=== PATIENT | female | born 1945 | race Caucasian/White ===

== ENCOUNTER 2017-12-11 07:16 | Emergency (ER) | payer MEDICARE, OTHER ==
[~2017-12-11] VITALS: Ht 165.1 cm; Wt 70.0 kg
[~2017-12-11 07:16] MED LIST: DIAZ5 PO; LEVO.075 PO; LORT5TAB PO; OXYC-360 PO; TRIA37.512 PO; ZOCO40TA PO
[2017-12-11 07:32] VITALS: BP 150/75; PULSE 88; RESP 20; TEMP 98.5; O2SAT 93
--- NOTE | 2017-12-11 07:53 | PD ---
HPI Chief Complaint: Seizure Time Seen by Provider: 07:44 Travel History International Travel<30 days: No Contact w/Intl Traveler<30days: No Traveled to known affect area: No History of Present Illness HPI Is a 72-year-old female with a history of Alzheimer's type dementia presents emergency department with her this morning by EVAC for possible new onset seizure. According to her he was awoke from a sound sleep this morning when he noticed his was shaking in all 4 extremities, the shaking lasted for about a minute after he woke up and then afterwards the patient was unarousable for about 10-15 minutes, EMS found the patient confused and altered and brought her to the hospital, on arrival to the hospital the patient is now widely awake and alert but oriented to self and place only which according to her is her usual baseline. No history of seizure activity in the past. Has been taking her medications as prescribed. Patient denies any pain currently, denies any chest pain shortness of breath headache tongue pain. History is somewhat limited by the patient's dementia PFSH Past Medical History Alzheimer's Disease: Yes Cancer: No High Cholesterol: Yes Diabetes: No Diminished Hearing: No Glaucoma: No Hepatitis: No Hiatal Hernia: No Hypertension: Yes Kidney Stones: Yes (NOVEMBER 2005, HAD STENT PLACED AND LATER REMOVED) Thyroid Disease: Yes Tetanus Vaccination: Unknown Menopausal: Yes Tubal Ligation: Yes Past Surgical History Pacemaker: No Other Surgery: Yes (LITHOTRIPSY) Social History Alcohol Use: No Tobacco Use: No Substance Use: No Allergies-Medications (Allergen,Severity, Reaction): Coded Allergies: No Known Allergies (Verified Adverse Reaction, Unknown, 12/11/17) Reported Meds & Prescriptions Reported Meds & Active Scripts Active Keflex (Cephalexin) 500 Mg Cap 500 Mg PO Q6H 7 Days Reported Aspirin 81 Mg Chew 81 Mg CHEW DAILY Fish Oil + D3 (Fish Oil-Cholecalciferol) 1,200-1,000 Mg-Unit Cap 1 Cap PO DAILY Vitamin D3 (Cholecalciferol) 5,000 Unit Cap 5,000 Units PO DAILY Vitamin B-1 (Thiamine HCl) 100 Mg Tab 100 Mg PO DAILY Montelukast (Montelukast Sodium) 10 Mg Tab 10 Mg PO HS Levothyroxine (Levothyroxine Sodium) 75 Mcg Tab 75 Mcg PO DAILY Simvastatin 20 Mg Tab 20 Mg PO DAILY Escitalopram (Escitalopram Oxalate) 10 Mg Tab 10 Mg PO DAILY Namzaric (Memantine-Donepezil) 28-10 Mg Cap 1 Cap PO HS Review of Systems Except as stated in HPI: all other systems reviewed are Neg Physical Exam Narrative GENERAL: Well-developed well-nourished, pleasantly confused but in no obvious distress SKIN: Focused skin assessment warm/dry. HEAD: Atraumatic. Normocephalic. No tongue laceration, no colvin signs no raccoons eyes EYES: Pupils equal and round. No scleral icterus. No injection or drainage. ENT: No nasal bleeding or discharge. Mucous membranes pink and moist. NECK: Trachea midline. No JVD. CARDIOVASCULAR: Regular rate and rhythm. No murmur appreciated. RESPIRATORY: No accessory muscle use. Clear to auscultation. Breath sounds equal bilaterally. GASTROINTESTINAL: Abdomen soft, non-tender, nondistended. Hepatic and splenic margins not palpable. MUSCULOSKELETAL: No obvious deformities. No clubbing. No cyanosis. No edema. NEUROLOGICAL: Awake and alert oriented to self only, cranial nerves II through XII are grossly intact and nonfocal, 5 out of 5 strength in all 4 extremities, pleasantly confused. Cerebellar testing negative, no seizure-like activity observed in the emergency department PSYCHIATRIC: Appropriate mood and affect; insight and judgment normal. Data Data Last Documented VS Vital Signs Date Time Temp Pulse Resp B/P (MAP) Pulse Ox O2 Delivery O2 Flow Rate FiO2 12/11/17 12:03 82 118/75 (89) 98 12/11/17 07:32 98.5 20 Orders Orders Electrocardiogram (12/11/17 ) Complete Blood Count With Diff (12/11/17 07:51) Ct Brain W/O Iv Contrast(Rout) (12/11/17 ) Blood Glucose (12/11/17 07:51) Ecg Monitoring (12/11/17 07:51) Iv Access Insert/Monitor (12/11/17 07:51) Oximetry (12/11/17 07:51) Comprehensive Metabolic Panel (12/11/17 07:51) Sodium Chloride 0.9% Flush (Ns Flush) (12/11/17 08:00) Ua Includes Microscopic (12/11/17 07:51) Thyroid Stimulating Hormone (12/11/17 08:14) Ed Discharge Order (12/11/17 10:57) Labs Laboratory Tests Test 12/11/17 08:00 12/11/17 08:30 White Blood Count 4.6 TH/MM3 Red Blood Count 4.78 MIL/MM3 Hemoglobin 15.4 GM/DL Hematocrit 45.3 % Mean Corpuscular Volume 94.9 FL Mean Corpuscular Hemoglobin 32.2 PG Mean Corpuscular Hemoglobin Concent 33.9 % Red Cell Distribution Width 14.4 % Platelet Count 205 TH/MM3 Mean Platelet Volume 7.0 FL Neutrophils (%) (Auto) 67.4 % Lymphocytes (%) (Auto) 22.1 % Monocytes (%) (Auto) 6.0 % Eosinophils (%) (Auto) 3.4 % Basophils (%) (Auto) 1.1 % Neutrophils # (Auto) 3.1 TH/MM3 Lymphocytes # (Auto) 1.0 TH/MM3 Monocytes # (Auto) 0.3 TH/MM3 Eosinophils # (Auto) 0.2 TH/MM3 Basophils # (Auto) 0.1 TH/MM3 CBC Comment DIFF FINAL Differential Comment Blood Urea Nitrogen 14 MG/DL Creatinine 1.11 MG/DL Random Glucose 138 MG/DL Total Protein 7.0 GM/DL Albumin 3.4 GM/DL Calcium Level 8.8 MG/DL Alkaline Phosphatase 91 U/L Aspartate Amino Transf (AST/SGOT) 21 U/L Alanine Aminotransferase (ALT/SGPT) 29 U/L Total Bilirubin 0.9 MG/DL Sodium Level 140 MEQ/L Potassium Level 3.8 MEQ/L Chloride Level 107 MEQ/L Carbon Dioxide Level 25.2 MEQ/L Anion Gap 8 MEQ/L Estimat Glomerular Filtration Rate 48 ML/MIN Thyroid Stimulating Hormone 3rd Gen 4.160 uIU/ML Urine Color YELLOW Urine Turbidity CLEAR Urine pH 5.0 Urine Specific [place] 1.010 Urine Protein TRACE mg/dL Urine Glucose (UA) NEG mg/dL Urine Ketones NEG mg/dL Urine Occult Blood NEG Urine Nitrite POS Urine Bilirubin NEG Urine Urobilinogen LESS THAN 2.0 MG/DL Urine Leukocyte Esterase MOD Urine RBC 1 /hpf Urine WBC 5 /hpf Urine Squamous Epithelial Cells <1 /hpf Urine Bacteria FEW /hpf MDM Medical Decision Making Medical Screen Exam Complete: Yes Emergency Medical Condition: Yes Differential Diagnosis New-onset seizure, electrolyte abnormality, urinary tract infection, brain mass, Narrative Course Emergency department, describes fairly classic generalized tonic-clonic seizure with postictal phase baseline mental status. Observed in the emergency department, initial workup CT of the head, basic labs is reassuring. Evidence of urinary tract infection but no evidence of Sirs sepsis. Patient's family at the bedside they were reassuring. Discussed follow-up with their neurologist macario and discuss returning to criteria. There is no indication started this time. She is stable for discharge Last [address] 12/11/17 0000 Signed Impressions: Service Date/Time: Monday, December 11, 2017 08:54 - CONCLUSION: Normal examination. Juan Montano MD Diagnosis Primary Impression: Seizure Additional Impression: UTI (urinary tract infection) Qualified Codes: N39.0 - Urinary tract infection, site not specified Referrals: Teresa Cuadra MD Med/Other Pt SpecificInfo: Prescription(s) given Scripts Cephalexin (Keflex) 500 Mg Cap 500 MG PO Q6H for Infection for 7 Days, #28 CAP 0 Refills Prov: Nima Farmer MD 12/11/17 Disposition: 01 DISCHARGE HOME Condition: Stable Nima Farmer MD Dec 11, 2017 07:53
[2017-12-11] MEDS ORDERED: FISHCAP4 PO (07:54)
[2017-12-11] MEDS ORDERED: ESCI10TA PO (07:54)
[2017-12-11] MEDS ORDERED: MONT10TA4 PO (07:54)
[2017-12-11] MEDS ORDERED: ASPI-516 CHEW (07:54)
[2017-12-11] MEDS ORDERED: VITA100T54 PO (07:54)
[2017-12-11] MEDS ORDERED: SIMV20TA PO (07:54)
[2017-12-11] MEDS ORDERED: LEVO75TA3 PO (07:54)
[2017-12-11] MEDS ORDERED: CHOL5000 PO (07:54)
[2017-12-11] MEDS ORDERED: MEMA1CAP2 PO (07:54)
[2017-12-11] MEDS ORDERED: SODIUM CHLORIDE 0.9% FLUSH 10 ML FLUSH IVF PRN (08:00)
[2017-12-11 08:11] LABS: AUTOMATED NEUTROPHIL # 3.1 TH/MM3 (1.8-7.7); BASOPHIL # 0.1 TH/MM3 (0-0.2); BASOPHIL % 1.1 % (0.0-2.0); EOSINOPHIL # 0.2 TH/MM3 (0-0.4); EOSINOPHIL % 3.4 % (0.0-4.0); HEMATOCRIT 45.3 % (35.0-46.0); HEMOGLOBIN 15.4 GM/DL (11.6-15.3); LYMPH % 22.1 % (9.0-44.0); MEAN CELL VOLUME 94.9 FL (80.0-100.0); MEAN CORPUSCULAR HEMOGLOBIN 32.2 PG (27.0-34.0); MEAN CORPUSCULAR HGB CONC 33.9 % (32.0-36.0); MONOCYTE # 0.3 TH/MM3 (0-0.9); NEUT % 67.4 % (16.0-70.0); PLATELET COUNT 205 TH/MM3 (150-450); RED BLOOD COUNT 4.78 MIL/MM3 (4.00-5.30); RED CELL DISTRIBUTION WIDTH 14.4 % (11.6-17.2); WHITE BLOOD COUNT 4.6 TH/MM3 (4.0-11.0)
[2017-12-11 08:27] LABS: ALBUMIN 3.4 GM/DL (3.4-5.0); AST (GOT) 21 U/L (15-37); BICARBONATE 25.2 MEQ/L (21.0-32.0); BLOOD UREA NITROGEN 14 MG/DL (7-18); CALCIUM 8.8 MG/DL (8.5-10.1); CHLORIDE 107 MEQ/L (98-107); CREATININE 1.11 MG/DL (0.50-1.00); GLOMERULAR FILTRATION RATE 48 ML/MIN (>89); GLUCOSE,RANDOM 138 MG/DL (74-106); SODIUM (NA) 140 MEQ/L (136-145)
[2017-12-11 08:28] LABS: ALT (GPT) 29 U/L (10-53)
[2017-12-11 08:33] LABS: ALKALINE PHOSPHATASE 91 U/L (45-117); TOTAL BILIRUBIN ADULT 0.9 MG/DL (0.2-1.0)
[2017-12-11 08:56] LABS: BACTERIA, URINE FEW /hpf; BILIRUBIN, URINE NEG (NEG); BLOOD, URINE NEG (NEG); GLUCOSE,URINE NEG (NEG); KETONE, URINE NEG (NEG); NITRITE,URINE POS (NEG); SQUAMOUS EPITHELIAL CELL URINE <1 /hpf (0-5); URINE COLOR YELLOW (YELLW/STRAW); URINE LEUKOCYTE ESTERASE MOD (NEG)
--- NOTE | 2017-12-11 09:11 | RADRPT ---
EXAM DATE/TIME: 12/11/2017 08:54 [facility] COMPARISON: No previous studies available for comparison. INDICATIONS : Trauma. Possible seizure. RADIATION DOSE: 38.14 CTDIvol (mGy) MEDICAL HISTORY : Dementia. Hypertension. SURGICAL HISTORY : Tubal ligation. ENCOUNTER: Initial ACUITY: 1 day PAIN SCALE: 0/10 LOCATION: cranial TECHNIQUE: Multiple contiguous axial images were obtained of the head. Using automated exposure control and adj ustment of the mA and/or kV according to patient size, radiation dose was kept as low as reasonably a chievable to obtain optimal diagnostic quality images. DICOM format image data is available electro nically for review and comparison. FINDINGS: CEREBRUM: The ventricles are normal for age. No evidence of midline shift, mass lesion, hemorrhage or acute in farction. No extra-axial fluid collections are seen. POSTERIOR FOSSA: The cerebellum and brainstem are intact. The 4th ventricle is midline. The cerebellopontine angle i s unremarkable. EXTRACRANIAL: The visualized portion of the orbits is intact. SKULL: The calvaria is intact. No evidence of skull fracture. CONCLUSION: Normal examination. Juan Montano MD on December 11, 2017 at 9:03 Board Certified Radiologist. This report was verified electronically.
[2017-12-11] MEDS ORDERED: CEPH-460 PO (10:56)
[2017-12-11 12:03] VITALS: BP 118/75
--- NOTE | 2017-12-11 18:49 | EKG ---
Date Performed: 12/11/2017 Time Performed: 07:44:50 PTAGE: 72 years EKG: Sinus rhythm NONSPECIFIC T-WAVE ABNORMALITY BORDERLINE ECG Since the prior tracing, there has been no significant change PREVIOUS TRACING : 02/22/2009 12.58 DOCTOR: Lori Kimbrough Interpretating Date/Time 12/11/2017 18:45:20
== END 2017-12-11 12:11 | disposition home or self-care (01) ==
LOC: NEPC 07:16
DX: R56.9 Unspecified convulsions (principal); N39.0 Urinary tract infection, site not specified; G30.9 Alzheimer's disease, unspecified; F02.80 Dementia in other diseases classified elsewhere, unspecified severity, without behavioral disturbance, psychotic disturbance, mood disturbance, and anxiety; E78.00 Pure hypercholesterolemia, unspecified; I10 Essential (primary) hypertension
CPT/HCPCS: 70450; 80053; 81001; 84443; 85025; 93005; 99285

== ENCOUNTER 2018-03-21 04:30 | Observation (INO) | payer OTHER ==
[~2018-03-21] VITALS: Ht 167.6 cm; Wt 80.0 kg
[2018-03-21] VITALS (11 sets, daily range): BP systolic 122–182; BP diastolic 65–91; PULSE 60–107; RESP 16–20; TEMP 97–98.5; O2SAT 95–98
[~2018-03-21 04:30] MED LIST changes: +ASPI-516 CHEW; +CEPH-460 PO; +CHOL5000 PO; -DIAZ5 PO; +ESCI10TA PO; +FISHCAP4 PO; -LEVO.075 PO; +LEVO75TA3 PO; -LORT5TAB PO; +MEMA1CAP2 PO; +MONT10TA4 PO; -OXYC-360 PO; +SIMV20TA PO; -TRIA37.512 PO; +VITA100T54 PO; -ZOCO40TA PO
[2018-03-21] MEDS ORDERED: SODIUM CHLORIDE 0.9% FLUSH 10 ML FLUSH IVF PRN (06:15)
--- NOTE | 2018-03-21 06:15 | PD ---
HPI Chief Complaint: Neuro Symptoms/ Deficits Time Seen by Provider: 06:10 Travel History International Travel<30 days: No Contact w/Intl Traveler<30days: No Traveled to known affect area: No History of Present Illness HPI 73-year-old female presents to the emergency department by private transportation the care of her significant other for evaluation of confusion and speech disturbance. Patient has history of dementia and hypothyroidism. states that she went to bed around 1130 last evening he was checking on her at approximately 2:50 this morning when he noticed as he tried to awaken her that she had some garbled speech and was confused. This is unusual for the patient. He has been oftentimes falls asleep in his chair and then goes to bed and he always checks on her and typically she does not have any difficulty with her speech. Patient does have some mild dementia. Patient was symptomatic for approximately 20-30 minutes and symptoms essentially resolved. Patient's speech is back to her normal. Patient did not experience any headache reported visual disturbance difficulty with swallowing weakness on one side of her body or the other side of her body. Patient was able to speak fluently and coherently approximately 20-30 minutes after awakening from sleep with aforementioned symptoms. Has been also notes that it she was still however having some mild memory disturbance as far as remote incidents upon arrival to the emergency department but that has also resolved. Patient does not drink alcohol does not smoke cigarettes and has no history of known CVA TIA cardiac disease hypertension dyslipidemia diabetes tobaccoism or family history of similar symptoms. PFSH Past Medical History Narrative Medical Dementia dyslipidemia hypothyroidism D&C no tobacco use nursing notes reviewed Alzheimer's Disease: Yes Cancer: No High Cholesterol: Yes Diabetes: No Diminished Hearing: No Glaucoma: No Hepatitis: No Hiatal Hernia: No Hypertension: Yes Kidney Stones: Yes (NOVEMBER 2005, HAD STENT PLACED AND LATER REMOVED) Neurologic: Yes (syncope) Thyroid Disease: Yes Menopausal: Yes Tubal Ligation: Yes Past Surgical History Pacemaker: No Other Surgery: Yes (LITHOTRIPSY) Social History Alcohol Use: No Tobacco Use: No Substance Use: No Allergies-Medications (Allergen,Severity, Reaction): Coded Allergies: No Known Allergies (Verified Adverse Reaction, Unknown, 03/21/18) Reported Meds & Prescriptions Reported Meds & Active Scripts Active Keflex (Cephalexin) 500 Mg Cap 500 Mg PO Q6H 7 Days Reported Aspirin 81 Mg Chew 81 Mg CHEW DAILY Fish Oil + D3 (Fish Oil-Cholecalciferol) 1,200-1,000 Mg-Unit Cap 1 Cap PO DAILY Vitamin D3 (Cholecalciferol) 5,000 Unit Cap 5,000 Units PO DAILY Vitamin B-1 (Thiamine HCl) 100 Mg Tab 100 Mg PO DAILY Montelukast (Montelukast Sodium) 10 Mg Tab 10 Mg PO HS Levothyroxine (Levothyroxine Sodium) 75 Mcg Tab 75 Mcg PO DAILY Simvastatin 20 Mg Tab 20 Mg PO DAILY Escitalopram (Escitalopram Oxalate) 10 Mg Tab 10 Mg PO DAILY Namzaric (Memantine-Donepezil) 28-10 Mg Cap 1 Cap PO HS Review of Systems Except as stated in HPI: all other systems reviewed are Neg Physical Exam Narrative GENERAL: Well-developed well-nourished female no acute distress no respiratory distress GCS 14 to 15 baseline per SKIN: Warm and dry. HEAD: Atraumatic. Normocephalic. EYES: Pupils equal and round. No scleral icterus. No injection or drainage. ENT: No nasal bleeding or discharge. Mucous membranes pink and moist. NECK: Trachea midline. No JVD. CARDIOVASCULAR: Regular rate and rhythm. RESPIRATORY: No accessory muscle use. Clear to auscultation. Breath sounds equal bilaterally. GASTROINTESTINAL: Abdomen soft, non-tender, nondistended. Hepatic and splenic margins not palpable. MUSCULOSKELETAL: Extremities without clubbing, cyanosis, or edema. No obvious deformities. NEUROLOGICAL: Awake and alert. No obvious cranial nerve deficits. Motor grossly within normal limits. Five out of 5 muscle strength in the arms and legs. Normal speech. No pronator drift. Sensory exam grossly intact. No limb ataxia. DTRs 2+ and equal without clonus. PSYCHIATRIC: Appropriate mood and affect; insight and judgment normal. Data Data Last Documented VS Vital Signs Date Time Temp Pulse Resp B/P (MAP) Pulse Ox O2 Delivery O2 Flow Rate FiO2 03/21/18 04:55 98.5 74 18 182/91 (121) 96 Orders Orders Electrocardiogram (03/21/18 06:10) Prothrombin Time / Inr (Pt) (03/21/18 06:10) Act Partial Throm Time (Ptt) (03/21/18 06:10) Complete Blood Count With Diff (03/21/18 06:10) Comprehensive Metabolic Panel (03/21/18 06:10) Creatine Kinase (Cpk) (03/21/18 06:10) Troponin I (03/21/18 06:10) Urinalysis - C+S If Indicated (03/21/18 06:10) Ct Brain W/O Iv Contrast(Rout) (03/21/18 06:10) Chest, Single Ap (03/21/18 06:10) Ecg Monitoring (03/21/18 06:10) Iv Access Insert/Monitor (03/21/18 06:10) Oximetry (03/21/18 06:10) Sodium Chloride 0.9% Flush (Ns Flush) (03/21/18 06:15) Blood Glucose (03/21/18 06:15) Urine Culture (03/21/18 06:20) Labs Laboratory Tests Test 03/21/18 06:20 White Blood Count 4.9 TH/MM3 Red Blood Count 4.93 MIL/MM3 Hemoglobin 16.1 GM/DL Hematocrit 46.6 % Mean Corpuscular Volume 94.5 FL Mean Corpuscular Hemoglobin 32.7 PG Mean Corpuscular Hemoglobin Concent 34.6 % Red Cell Distribution Width 14.5 % Platelet Count 220 TH/MM3 Mean Platelet Volume 7.4 FL Neutrophils (%) (Auto) 71.4 % Lymphocytes (%) (Auto) 19.2 % Monocytes (%) (Auto) 6.3 % Eosinophils (%) (Auto) 2.2 % Basophils (%) (Auto) 0.9 % Neutrophils # (Auto) 3.5 TH/MM3 Lymphocytes # (Auto) 0.9 TH/MM3 Monocytes # (Auto) 0.3 TH/MM3 Eosinophils # (Auto) 0.1 TH/MM3 Basophils # (Auto) 0.0 TH/MM3 CBC Comment DIFF FINAL Differential Comment Prothrombin Time 10.7 SEC Prothromb Time International Ratio 1.1 RATIO Activated Partial Thromboplast Time 25.4 SEC Urine Color YELLOW Urine Turbidity HAZY Urine pH 5.0 Urine Specific [place] 1.018 Urine Protein NEG mg/dL Urine Glucose (UA) NEG mg/dL Urine Ketones NEG mg/dL Urine Occult Blood NEG Urine Nitrite POS Urine Bilirubin NEG Urine Urobilinogen LESS THAN 2.0 MG/DL Urine Leukocyte Esterase LARGE Urine RBC 1 /hpf Urine WBC 19 /hpf Urine Squamous Epithelial Cells 4 /hpf Urine Bacteria MANY /hpf Urine Mucus FEW /lpf Microscopic Urinalysis Comment CATH-CULTURE IND Blood Urea Nitrogen 17 MG/DL Creatinine 0.95 MG/DL Random Glucose 110 MG/DL Albumin 3.6 GM/DL Calcium Level 8.9 MG/DL Aspartate Amino Transf (AST/SGOT) 22 U/L Sodium Level 140 MEQ/L Potassium Level 4.1 MEQ/L Chloride Level 104 MEQ/L Carbon Dioxide Level 24.7 MEQ/L Anion Gap 11 MEQ/L Estimat Glomerular Filtration Rate 57 ML/MIN [facility] Medical Decision Making Medical Screen Exam Complete: Yes Emergency Medical Condition: Yes Medical Record Reviewed: Yes Interpretation(s) EKG: Normal sinus rhythm rate [address] elevation injury pattern or ectopy noted UA positive WBCs positive bacteria culture indicated Last Impressions Head CT 03/21/18609 Signed Impressions: CONCLUSION: Unremarkable study. Chest X-Ray 03/21/18609 Signed Impressions: CONCLUSION: No acute cardiopulmonary disease. CBC & BMP Diagram 03/21/18 06:20 Albumin 3.6, Calcium Level 8.9, Aspartate Amino Transf (AST/SGOT) 22 Differential Diagnosis Speech disturbance, TIA, CVA, arrhythmia, sleep disorder, adverse medication reaction Narrative Course Patient placed on night monitor with continuous pulse oximetry IV access obtained EKG ordered CT brain noncontrast ordered labs collected and sent for resulting CBC is automated differential grossly within normal limits chemistries grossly within normal range EKG no acute injury pattern change CT brain noncontrast reveals no acute abnormality chest x-ray no lobar infiltrate or acute process; urinalysis is abnormal with leukocyte esterase white blood cells and many bacteria culture indicated; blood cultures obtained and patient given first dose of Rocephin IV in the emergency department Physician Communication Physician Communication call placed to [facility] service Diagnosis Primary Impression: TIA (transient ischemic attack) Qualified Codes: G45.9 - Transient cerebral ischemic attack, unspecified Additional Impression: UTI (urinary tract infection) Qualified Codes: N39.0 - Urinary tract infection, site not specified Admitting Information Admitting Physician Requests: Sabina Nelson MD March 21, 2018 06:15
[2018-03-21 06:54] LABS: AUTOMATED NEUTROPHIL # 3.5 TH/MM3 (1.8-7.7); BASOPHIL % 0.9 % (0.0-2.0); EOSINOPHIL # 0.1 TH/MM3 (0-0.4); EOSINOPHIL % 2.2 % (0.0-4.0); HEMATOCRIT 46.6 % (35.0-46.0); HEMOGLOBIN 16.1 GM/DL (11.6-15.3); LYMPH % 19.2 % (9.0-44.0); LYMPHOCYTE # 0.9 TH/MM3 (1.0-4.8); MEAN CELL VOLUME 94.5 FL (80.0-100.0); MEAN CORPUSCULAR HEMOGLOBIN 32.7 PG (27.0-34.0); MEAN CORPUSCULAR HGB CONC 34.6 % (32.0-36.0); MEAN PLATELET VOLUME 7.4 FL (7.0-11.0); MONO % 6.3 % (0.0-8.0); MONOCYTE # 0.3 TH/MM3 (0-0.9); NEUT % 71.4 % (16.0-70.0); PLATELET COUNT 220 TH/MM3 (150-450); RED BLOOD COUNT 4.93 MIL/MM3 (4.00-5.30); RED CELL DISTRIBUTION WIDTH 14.5 % (11.6-17.2); WHITE BLOOD COUNT 4.9 TH/MM3 (4.0-11.0)
[2018-03-21 06:57] LABS: BACTERIA, URINE MANY /hpf; BILIRUBIN, URINE NEG (NEG); BLOOD, URINE NEG (NEG); GLUCOSE,URINE NEG (NEG); INTERNATIONAL NORMALIZED RATIO 1.1 RATIO; KETONE, URINE NEG (NEG); MUCUS URINE FEW /lpf (OCC); NITRITE,URINE POS (NEG); PROTHROMBIN TIME - PATIENT 10.7 SEC (9.8-11.6); SQUAMOUS EPITHELIAL CELL URINE 4 /hpf (0-5); URINE COLOR YELLOW (YELLW/STRAW); URINE LEUKOCYTE ESTERASE LARGE (NEG)
--- NOTE | 2018-03-21 06:59 | RADRPT ---
EXAM DATE: 03/21/2018 6:37 AM EDT AGE/SEX: 73 years / Female INDICATIONS: Altered mental status. CLINICAL DATA: This is the patient's initial encounter. Patient reports that signs and symptoms have been present for 1 day and indicates a pain score of 0/10. MEDICAL/SURGICAL HISTORY: Hypertension. Dementia. Alzheimer's. None. RADIATION DOSE: 56.35 CTDI (mGy) COMPARISON: No prior exams available for comparison. TECHNIQUE: CT of the head without contrast. Using automated exposure control and adjustment of the mA and/or kV according to patient size, radiation dose was kept as low as reasonably achievable to ob tain optimal diagnostic quality images. FINDINGS: There is no evidence for intracranial hemorrhage, mass effect, mass lesions, edema, or extra-axial fl uid collections. The visualized bony structures appear intact. The ventricles are normal size for t he patient's age. There are no signs of acute infarction for technique. CONCLUSION: Unremarkable study. Electronically signed by: Silvia Dietz MD 03/21/2018 6:58 AM EDT
--- NOTE | 2018-03-21 07:00 | RADRPT ---
EXAM DATE: 03/21/2018 6:42 AM EDT AGE/SEX: 73 years / Female INDICATIONS: Shortness of breath. CLINICAL DATA: This is the patient's initial encounter. Patient reports that signs and symptoms have been present for 1 day and indicates a pain score of 0/10. MEDICAL/SURGICAL HISTORY: Hypertension. Dementia. Tubal ligation. COMPARISON: No prior exams available for comparison. FINDINGS: The lungs are clear without infiltrate, nodule, or mass. There is no appreciable pleural effusion for technique. Heart and mediastinum are unremarkable. CONCLUSION: No acute cardiopulmonary disease. Electronically signed by: Silvia Dietz MD 03/21/2018 6:59 AM EDT
[2018-03-21 07:05] LABS: ALBUMIN 3.6 GM/DL (3.4-5.0); AST (GOT) 22 U/L (15-37); BICARBONATE 24.7 MEQ/L (21.0-32.0); BLOOD UREA NITROGEN 17 MG/DL (7-18); CALCIUM 8.9 MG/DL (8.5-10.1); CHLORIDE 104 MEQ/L (98-107); CREATININE 0.95 MG/DL (0.50-1.00); GLOMERULAR FILTRATION RATE 57 ML/MIN (>89); GLUCOSE,RANDOM 110 MG/DL (74-106); SODIUM (NA) 140 MEQ/L (136-145)
[2018-03-21 07:10] LABS: ALKALINE PHOSPHATASE 93 U/L (45-117); ALT (GPT) 31 U/L (10-53); TOTAL BILIRUBIN ADULT 0.9 MG/DL (0.2-1.0); TOTAL PROTEIN 7.4 GM/DL (6.4-8.2); TROPONIN I LESS THAN 0.02 NG/ML (0.02-0.05)
[2018-03-21] MEDS ORDERED: cefTRIAXone INJ 1,000 MG in SODIUM CHLORIDE 0.9% INJ 100 ML IV ONE (07:15)
[2018-03-21] MEDS ORDERED: ENALAPRILAT 1.25 MG/ML VIAL IV PUSH PRN (07:45)
[2018-03-21] MEDS ORDERED: SODIUM CHLORIDE 0.9% FLUSH 10 ML FLUSH IV FLUSH PRN (07:45)
[2018-03-21] MEDS ORDERED: DEXTROSE 50% IN WATER 50 ML VIAL(D50) IV PUSH PRN (07:45)
[2018-03-21] MEDS ORDERED: GLUCAGON 1 MG/ML VIAL OTHER PRN (07:45)
[2018-03-21] MEDS: INSULIN ASPART SUPPLEMENTAL SCALE SQ SCH ×4 (07:52→20:22)
[2018-03-21] MEDS: ENOXAPARIN SODIUM 40 MG/0.4 ML SYRINGE SQ SCH (07:54)
[2018-03-21] MEDS: SODIUM CHLORIDE 0.9% FLUSH 10 ML FLUSH IV FLUSH SCH ×2 (07:54→20:20)
--- NOTE | 2018-03-21 08:56 | RADRPT ---
EXAM DATE: 03/21/2018 8:52 AM EDT AGE/SEX: 73 years / Female INDICATIONS: Transient ischemic attack. CLINICAL DATA: This is the patient's initial encounter. Patient reports that signs and symptoms have been present for 1 day and indicates a pain score of 0/10. MEDICAL/SURGICAL HISTORY: Hypercholesterolemia. Hypertension. Renal calculi. Thyroid disease . Syncope. Alzheimer's disease. Tubal ligation. Lithotripsy. COMPARISON: No prior [facility] exams available for comparison. [facility], [facility]OTID [facility] 2017-01-16 VELOCITY PARAMETERS: ICA/CCA Ratio: Right 1.2 , Left 1.0 ICA: Right 73 cm/sec, Left 86 cm/sec CCA: Right 62 cm/sec, Left 82 cm/sec ECA: Right 72 cm/sec, Left 71 cm/sec Vertebral: Right 35 cm/sec antegrade, Left 40 cm/sec antegrade FINDINGS: Right Carotid: No significant stenosis is visualized. The waveforms are within normal limits. Left Carotid: No significant stenosis is visualized. The waveforms are within normal limits. Other: None. CONCLUSION: 1. Right Internal Carotid Artery: No significant stenosis 2. Left Internal Carotid Artery: No significant stenosis Electronically signed by: Thai Snow MD 03/21/2018 8:55 AM EDT
--- NOTE | 2018-03-21 13:47 | HHI.HP ---
[facility] Service [facility]ists Primary Care Physician Unknown Admission Diagnosis TIA; uti Diagnoses: (1) UTI (urinary tract infection) (2) TIA (transient ischemic attack) Chief Complaint: confusion Travel History International Travel<30 Days: No Contact w/Intl Traveler <30 Da: No Traveled to Known Affected Are: No History of Present Illness The patient is a 73-year-old female who was brought to the emergency department by her for evaluation of confusion and difficulty with speech. Patient has history of dementia and does not recall any of the events that led to her coming to the hospital. She states that she feels "fine". She has no pain at this time. Denies headache, vision changes, chest pain, dyspnea. Her is not present at bedside at this time. Further information is gathered from review of the electronic medical record and discussion with the ER physician. The patient's checked on his at approximately 3:00 this morning. And he awakened her she had difficulty speaking and was more confused than normal. Her symptoms resolved approximately 30 minutes later. She currently has no symptoms. She remains confused, which is apparently her baseline. Review of Systems ROS Limitations: Poor Historian Constitutional: DENIES: Fever, Chills, Night Sweats Eyes: DENIES: Blurred vision, Vision loss Ears, nose, mouth, throat: DENIES: Hearing loss Respiratory: DENIES: Cough, Wheezing, Sputum production, Shortness of breath Cardiovascular: DENIES: Chest pain, Palpitations, Dyspnea on Exertion, Lower Extremity Edema Gastrointestinal: DENIES: Abdominal pain, Constipation, Diarrhea, Nausea, Vomiting Genitourinary: DENIES: Urinary frequency, Urinary incontinence, Urgency, Hematuria, Dysuria, Nocturia Musculoskeletal: DENIES: Joint pain, Muscle aches Integumentary: DENIES: Pruritus, Rash Hematologic/lymphatic: DENIES: Bruising Neurologic: DENIES: Headache Psychiatric: COMPLAINS OF: Confusion Past Family Social History Past Medical History Dementia Dyslipidemia Hypothyroidism Past Surgical History Lithotripsy Tonsillectomy Reported Medications Keflex (Cephalexin) 500 Mg Cap 500 Mg PO Q6H 7 Days Aspirin 81 Mg Chew 81 Mg CHEW DAILY Fish Oil + D3 (Fish Oil-Cholecalciferol) 1,200-1,000 Mg-Unit Cap 1 Cap PO DAILY Vitamin D3 (Cholecalciferol) 5,000 Unit Cap 5,000 Units PO DAILY Vitamin B-1 (Thiamine HCl) 100 Mg Tab 100 Mg PO DAILY Montelukast (Montelukast Sodium) 10 Mg Tab 10 Mg PO HS Levothyroxine (Levothyroxine Sodium) 75 Mcg Tab 75 Mcg PO DAILY Simvastatin 20 Mg Tab 20 Mg PO DAILY Escitalopram (Escitalopram Oxalate) 10 Mg Tab 10 Mg PO DAILY Namzaric (Memantine-Donepezil) 28-10 Mg Cap 1 Cap PO HS Allergies: Coded Allergies: No Known Allergies (Verified Adverse Reaction, Unknown, 03/21/18) Family History Father had heart disease Social History Quit smoking many years ago. Denies alcohol or illicit drug use. Physical Exam Vital Signs Vital Signs Date Time Temp Pulse Resp B/P (MAP) Pulse Ox O2 Delivery O2 Flow Rate FiO2 03/21/18 12:53 97.0 62 20 133/70 (91) 96 03/21/18 10:57 97.8 81 16 122/76 (91) 98 03/21/18 09:00 97.7 67 16 138/77 (97) 98 Room Air 03/21/18 07:40 16 97 Room Air 03/21/18 07:40 67 16 97 Room Air 03/21/18 07:40 97.8 67 16 148/69 (95) 97 Room Air 03/21/18 04:55 98.5 74 18 182/91 (121) 96 Physical Exam GENERAL: Well-nourished, well-developed female in no acute distress. HEENT: Normocephalic, atraumatic. Pupils equal, round and reactive. Extraocular movements intact. No scleral icterus. No injection or drainage. Oropharynx is clear. Mucous membranes are moist. CARDIOVASCULAR: Regular rate and rhythm without murmurs, gallops, or rubs. RESPIRATORY: Clear to auscultation. No wheezes, rales, or rhonchi. Breathing is non-labored. GASTROINTESTINAL: Abdomen soft, non-tender, nondistended. EXTREMITIES: No lower extremity edema. No calf tenderness. PSYCH: Alert, confused. Not oriented to city, year, month. NEURO: Cranial nerves II through XII are grossly intact. Speech is normal. Laboratory Laboratory Tests Test 03/21/18 06:20 White Blood Count 4.9 Red Blood Count 4.93 Hemoglobin 16.1 Hematocrit 46.6 Mean Corpuscular Volume 94.5 Mean Corpuscular Hemoglobin 32.7 Mean Corpuscular Hemoglobin Concent 34.6 Red Cell Distribution Width 14.5 Platelet Count 220 Mean Platelet Volume 7.4 Neutrophils (%) (Auto) 71.4 Lymphocytes (%) (Auto) 19.2 Monocytes (%) (Auto) 6.3 Eosinophils (%) (Auto) 2.2 Basophils (%) (Auto) 0.9 Neutrophils # (Auto) 3.5 Lymphocytes # (Auto) 0.9 Monocytes # (Auto) 0.3 Eosinophils # (Auto) 0.1 Basophils # (Auto) 0.0 CBC Comment DIFF FINAL Differential Comment Prothrombin Time 10.7 Prothromb Time International Ratio 1.1 Activated Partial Thromboplast Time 25.4 Urine Color YELLOW Urine Turbidity HAZY Urine pH 5.0 Urine Specific [place] 1.018 Urine Protein NEG Urine Glucose (UA) NEG Urine Ketones NEG Urine Occult Blood NEG Urine Nitrite POS Urine Bilirubin NEG Urine Urobilinogen LESS THAN 2.0 Urine Leukocyte Esterase LARGE Urine RBC 1 Urine WBC 19 Urine Squamous Epithelial Cells 4 Urine Bacteria MANY Urine Mucus FEW Microscopic Urinalysis Comment CATH-CULTURE IND Blood Urea Nitrogen 17 Creatinine 0.95 Random Glucose 110 Total Protein 7.4 Albumin 3.6 Calcium Level 8.9 Alkaline Phosphatase 93 Aspartate Amino Transf (AST/SGOT) 22 Alanine Aminotransferase (ALT/SGPT) 31 Total Bilirubin 0.9 Sodium Level 140 Potassium Level 4.1 Chloride Level 104 Carbon Dioxide Level 24.7 Anion Gap 11 Estimat Glomerular Filtration Rate 57 Total Creatine Kinase 73 Troponin I LESS THAN 0.02 Date/Time Source Procedure Growth Status 03/21/18 07:45 Blood Peripheral Aerobic Blood Culture Pending Received 03/21/18 07:45 Blood Peripheral Anaerobic Blood Culture Pending Received 03/21/18 06:20 Urine Catheterized Urine Urine Culture Pending Received Result Diagram: 03/21/1820 03/21/1820 Imaging Last Impressions Head CT 03/21/18 0610 Signed Impressions: CONCLUSION: Unremarkable study. Chest X-Ray 03/21/18 0610 Signed Impressions: CONCLUSION: No acute cardiopulmonary disease. Carotid Artery Ultrasound 03/21/18 0000 Signed Impressions: CONCLUSION: 1. Right Internal Carotid Artery: No significant stenosis 2. Left Internal Carotid Artery: No significant stenosis Caprini VTE Risk Assessment Caprini VTE Risk Assessment: Mod/High Risk (score >= 2) Caprini Risk Assessment Model Point Value = 1 Point Value = 2 Point Value = 3 Point Value = 5 Age 41-60 Minor surgery BMI > 25 kg/m2 Swollen legs Varicose veins or History of unexplained or recurrent spontaneous Oral contraceptives or hormone replacement Sepsis (< 1 month) Serious lung disease, including pneumonia (< 1 month) Abnormal pulmonary function Acute myocardial infarction Congestive heart failure (< 1 month) History of inflammatory bowel disease Medical patient at bed rest Age 61-74 Arthroscopic surgery Major open surgery (> 45 min) Laparoscopic surgery (> 45 min) Malignancy Confined to bed (> 72 hours) Immobilizing plaster cast Central venous access Age >= 75 History of VTE Family history of VTE Factor V Leiden Prothrombin [id number] Lupus anticoagulant Anticardiolipin antibodies Elevated serum homocysteine Heparin-induced thrombocytopenia Other congenital or acquired thrombophilia Stroke (< 1 month) Elective arthroplasty Hip, pelvis, or leg fracture Acute spinal cord injury (< 1 month) Prophylaxis Regimen Total Risk Factor Score Risk Level Prophylaxis Regimen 0-1 Low Early ambulation 2 Moderate Order ONE of the following: *Sequential Compression Device (SCD) *Heparin 5000 units SQ BID 3-4 Higher Order ONE of the following medications: *Heparin 5000 units SQ TID *Enoxaparin/Lovenox 40 mg SQ daily (WT < 150 kg, CrCl > 30 mL/min) *Enoxaparin/Lovenox 30 mg SQ daily (WT < 150 kg, CrCl > 10-29 mL/min) *Enoxaparin/Lovenox 30 mg SQ BID (WT < 150 kg, CrCl > 30 mL/min) AND/OR *Sequential Compression Device (SCD) 5 or more Highest Order ONE of the following medications: *Heparin 5000 units SQ TID (Preferred with Epidurals) *Enoxaparin/Lovenox 40 mg SQ daily (WT < 150 kg, CrCl > 30 mL/min) *Enoxaparin/Lovenox 30 mg SQ daily (WT < 150 kg, CrCl > 10-29 mL/min) *Enoxaparin/Lovenox 30 mg SQ BID (WT < 150 kg, CrCl > 30 mL/min) AND *Sequential Compression Device (SCD) Assessment and Plan Assessment and Plan 1. Confusion, dysarthria: Likely TIA. Symptoms resolved in about 30 minutes. Patient does continue to display confusion, which is apparently at her baseline. 2D echocardiogram is pending. Head CT is negative. Carotid artery ultrasound is negative. PT/OT/ST. Consult neurology. 2. Dementia: Patient reportedly at her baseline mental status. She is quite confused at this time. Continue home medications. 3. Hyperlipidemia: Continue statin. 4. Hypothyroidism: Continue Synthroid. 5. UTI: Continue Rocephin. Urine culture is pending. 6. DVT prophylaxis: Lovenox. Problem Qualifiers (1) UTI (urinary tract infection): Qualified Codes: N39.0 - Urinary tract infection, site not specified (2) TIA (transient ischemic attack): Qualified Codes: G45.9 - Transient cerebral ischemic attack, unspecified Marquis Billingsley MD March 21, 2018 13:47
--- NOTE | 2018-03-21 15:01 | EKG ---
Date Performed: 03/21/2018 Time Performed: 06:16:52 PTAGE: 73 years EKG: Sinus rhythm WITH SINUS ARRHYTHMIA NORMAL ECG Since the PREVIOUS TRACING , no significant change noted PREVIOUS TRACIN12/11/2017 07.44 DOCTOR: Jigar Schulz Interpretating Date/Time 03/21/2018 14:59:07
[2018-03-21 16:47] LABS: HEMOGLOBIN A1C 5.7 % (4.3-6.0)
[2018-03-21] MEDS: MONTELUKAST SODIUM 10 MG TAB PO SCH (20:19)
--- NOTE | 2018-03-21 20:40 | MB ---
cc: Morgan Gordon MD, PhD Morgan Gordon MD PhD DATE: 03/21/2018 REASON FOR CONSULTATION: Possible TIA. HISTORY OF PRESENT ILLNESS: Ms. Sanches is a 73-year-old female who has a baseline dementia with memory loss and confusion. Her states that he woke her up this morning around 3 a.m. At that time, she had difficulty with speech, was talking "gibberish" and words that did not make sense. She eventually was able to get some words out that made sense but then reverted back to talking gibberish for several minutes, roughly 30 minutes, and then the symptoms resolved. She has been stable since, back to her baseline state. She did not notice any focal weakness or any facial droop. PAST MEDICAL HISTORY: History of dementia, history of lithotripsy, tonsillectomy, hypothyroidism, dyslipidemia. MEDICINES AT HOME: 1. Aspirin 81 mg daily. 2. Keflex, 3. Fish oil, 4. Vitamin D3. 5. Vitamin B1 6. Montelukast 7. Levothyroxine. 8. Simvastatin. 9. Lexapro 10. Namzaric. NEUROLOGICAL EXAMINATION: VITAL SIGNS: Blood pressure is 137/65, pulse 65, respiratory rate is 20, temperature 97 degrees. Higher cortical function: She is alert, oriented x2, has poor recall. She follows commands. Speech normal. Cranial nerves intact. Motor exam: There are no focal deficits noted. IMAGING STUDIES: CT of the brain: No acute change. Carotid ultrasound: No significant stenosis is identified. LABORATORY DATA: White count is 4900, hemoglobin 16, hematocrit 46%, platelet count 220,000. Sodium is 140, potassium 4.1, chloride 104, CO2 of 24.7. The BUN is 17, creatinine 0.95, GFR 57, glucose 110, AST 22, ALT 31. PT 10.7, INR 1.1, APTT 25.4. Urinalysis: The pH is 5, specific gravity 1.018, positive nitrite, 19 WBCs. One RBC is identified. ASSESSMENT: Suspect that this may have been a transient ischemic attack, although cannot entirely rule out effect of her dementia. RECOMMENDATION: For the possibility of transient ischemic attack, recommend increasing aspirin to 325 mg daily. I would like to get an MRI of the brain. Also, echocardiogram to rule out embolic source. Also, electroencephalogram to be sure there is no focal seizure activity. The patient does appear to have a urinary tract infection as well. It is possible this could have been an encephalopathy from urinary tract infection as well. Morgan Gordon MD, PhD WILLIE/ , 07:52 PM , 08:40 PM
--- NOTE | 2018-03-21 20:52 | RADRPT ---
EXAM DATE: 03/21/2018 8:44 PM EDT AGE/SEX: 73 years / Female INDICATIONS: CVA. CLINICAL DATA: This is the patient's initial encounter. Patient reports that signs and symptoms have been present for 1 day and indicates a pain score of 0/10. MEDICAL/SURGICAL HISTORY: Renal calculi. Dementia. Tubal ligation. Left shoulder sx. COMPARISON: CT of the brain 03/21/2018. TECHNIQUE: Multiplanar, multisequence examination of the brain was performed without contrast. FINDINGS: Cerebrum: The ventricles are normal for age. No evidence of midline shift, mass lesion, hemorrhage or acute infarction. No extraaxial fluid collections are seen. The pituitary gland and suprasellar cistern are normal in configuration. White Matter: No significant signal abnormalities are seen in the white matter. Posterior Fossa: The cerebellum and brainstem are intact. The 4th ventricle is midline. The cerebel lopontine angle is unremarkable. The cerebellar tonsils are normal in position. Diffusion Imaging: No focal areas of restricted diffusion are seen. No evidence of acute infarction . Extracranial: The visualized portions of the orbits and paranasal sinuses are unremarkable. CONCLUSION: 1. Negative MR Brain non contrast. Electronically signed by: Davi Malagon MD 03/21/2018 8:51 PM EDT
[2018-03-21] MEDS ORDERED: MEMANTINE DONEPEZIL PO SCH (21:00)
[2018-03-22] VITALS (12 sets, daily range): BP systolic 136–162; BP diastolic 60–82; PULSE 52–88; RESP 16–20; TEMP 97.7–98.7; O2SAT 88–97
[2018-03-22] MEDS: LEVOTHYROXINE SODIUM 75 MCG TAB PO SCH (05:33)
[2018-03-22 07:49] LABS: CHOLESTEROL/ HDL RATIO 2.08 RATIO; HDL CHOLESTEROL 82.3 MG/DL (40.0-60.0)
[2018-03-22] MEDS: INSULIN ASPART SUPPLEMENTAL SCALE SQ SCH ×4 (08:00→20:21)
[2018-03-22] MEDS ORDERED: ASPIRIN 81 MG CHEW TAB CHEW SCH (09:00)
[2018-03-22] MEDS ORDERED: NON-FORMULARY DRUG (Fish Oil-Cholecalciferol (Fish Oil + D3) 1 CAP) PO SCH (09:00)
[2018-03-22] MEDS: ENOXAPARIN SODIUM 40 MG/0.4 ML SYRINGE SQ SCH (09:33)
[2018-03-22] MEDS: PRAVASTATIN SOD 40 MG TAB PO SCH (09:33)
[2018-03-22] MEDS: CHOLECALCIFEROL (VIT D3) 5000 UNIT CAP PO SCH (09:33)
[2018-03-22] MEDS: ESCITALOPRAM OXALATE 10 MG TAB PO SCH (09:33)
[2018-03-22] MEDS: THIAMINE HCL 100 MG TAB PO SCH (09:33)
[2018-03-22] MEDS: cefTRIAXone INJ 1,000 MG in SODIUM CHLORIDE 0.9% INJ 100 ML IV SCH (09:34)
[2018-03-22] MEDS: SODIUM CHLORIDE 0.9% FLUSH 10 ML FLUSH IV FLUSH SCH ×2 (09:34→20:22)
[2018-03-22] MEDS: ASPIRIN 81 MG CHEW TAB CHEW SCH (09:34)
--- NOTE | 2018-03-22 10:15 | HHI.PR ---
Subjective Remarks Follow-up for confusion, dysphasia, TIA, UTI. Patient seen with her at bedside who reports the patient appears back to her normal. She has no medical complaints including no fever/chills, headache, visual changes, lightheadedness , dizziness, chest pain, palpitations, shortness of breath, abdominal or urinary complaints. She wants to go home today. Objective Vitals Vital Signs Date Time Temp Pulse Resp B/P (MAP) Pulse Ox O2 Delivery O2 Flow Rate FiO2 03/22/18 09:49 66 162/80 (107) 03/22/18 08:06 98.2 88 20 140/82 (101) 88 03/22/18 04:00 52 03/22/18 03:40 97.7 60 16 159/74 (102) 94 03/22/18 00:00 55 03/21/18 23:40 97.9 60 16 140/74 (96) 95 03/21/18 21:05 97.8 69 16 156/80 (105) 95 03/21/18 20:00 107 03/21/18 16:00 97.5 65 20 137/65 (89) 97 03/21/18 15:41 64 03/21/18 12:53 97.0 62 20 133/70 (91) 96 03/21/18 12:38 61 03/21/18 10:57 97.8 81 16 122/76 (91) 98 I/O 03/21/18 03/21/18 03/21/18 03/22/18 03/22/18 03/22/18 07:00 15:00 23:00 07:00 15:00 23:00 Intake Total 400 ml Balance 400 ml Intake Oral 300 ml IV Total 100 ml # Voids 1 # Bowel Movements 0 Result Diagram: 03/21/1861903/21/18619 Imaging Last Impressions Head CT 03/21/18609 Signed Impressions: CONCLUSION: Unremarkable study. Chest X-Ray 03/21/18609 Signed Impressions: CONCLUSION: No acute cardiopulmonary disease. Carotid Artery Ultrasound 03/21/18 0000 Signed Impressions: CONCLUSION: 1. Right Internal Carotid Artery: No significant stenosis 2. Left Internal Carotid Artery: No significant stenosis Brain MRI 03/21/18 0000 Signed Impressions: CONCLUSION: 1. Negative MR Brain non contrast. Objective Remarks GENERAL: Well-nourished, well-developed pleasantly confused elderly female patient in NAD. SKIN: Warm and dry. No rash. HEENT: Normocephalic. Atraumatic. Pupils equal and round. Mucous membranes pink and moist. NECK: Supple. Trachea midline. CARDIOVASCULAR: Regular rate and rhythm. No murmur appreciated. RESPIRATORY: No accessory muscle use. Clear to auscultation. Breath sounds equal bilaterally. GASTROINTESTINAL: Abdomen soft, non-tender, nondistended. Normoactive bowel sounds x4. MUSCULOSKELETAL: No obvious deformities. Extremities without clubbing, cyanosis , or edema. NEUROLOGICAL: Awake and alert. No obvious cranial nerve deficits. Motor grossly within normal limits. 5/5 strength of bilateral upper and lower extremities. Sensation equal and intact of distal bilateral upper and lower extremities. Normal speech. No facial droop/lid lag/tongue deviation. Symmetrical nasolabial folds. PSYCHIATRIC: Appropriate mood and affect; insight and judgment limited. Medications and IVs Current Medications Medications (Trade) Dose Ordered Sig/Clara Route Start Time Stop Time Status Last Admin (NS Flush) 2 ml BID IV FLUSH 03/21/18 09:00 03/22/18 09:34 (NS Flush) 2 ml UNSCH PRN IV FLUSH 03/21/18 07:45 (Vasotec Inj) 1.25 mg Q4H PRN IV PUSH 03/21/18 07:45 (NovoLOG SUPPLEMENTAL SCALE) 1 ACHS SQ 03/21/18 08:00 (D50w (Vial) Inj) 50 ml UNSCH PRN IV PUSH 03/21/18 07:45 (Glucagon Inj) 1 mg UNSCH PRN OTHER 03/21/18 07:45 (Lovenox Inj) 40 mg Q24H SQ 03/21/18 08:00 03/22/18 09:33 (Vitamin D3) 5,000 units DAILY PO 03/22/18 09:00 03/22/18 09:33 (Lexapro) 10 mg DAILY PO 03/22/18 09:00 03/22/18 09:33 (Synthroid) 75 mcg DAILY@0600 PO 03/22/18 06:00 03/22/18 05:33 (Singulair) 10 mg HS PO 03/21/18 21:00 03/21/18 20:19 (Vitamin B1) 100 mg DAILY PO 03/22/18 09:00 03/22/18 09:33 Patient Own Medication PT OWN MED: (Memantine-Donepezil (Namzar... HS PO 03/21/18 21:00 Future Hold (Pravachol) 40 mg DAILY PO 03/22/18 09:00 03/22/18 09:33 Ceftriaxone Sodium 1000 mg/ Sodium Chloride 100 ml @ 200 mls/hr Q24H IV 03/22/18 09:00 03/22/18 09:34 (Aspirin Chew) 324 mg DAILY CHEW 03/22/18 09:00 03/22/18 09:34 A/P Problem List: (1) UTI (urinary tract infection) ICD Code: N39.0 - Urinary tract infection, site not specified Status: Acute (2) TIA (transient ischemic attack) ICD Code: G45.9 - Transient cerebral ischemic attack, unspecified Status: Acute Assessment and Plan 73-year-old female with history of dementia, hypothyroidism, dyslipidemia, presents with acute onset of confusion and speech difficulty. TIA: Symptoms consistent with transient ischemic attack, symptoms resolved after approximately 30 minutes. Rule out other etiologies, CVA, seizure, infection, arrhythmia. -Head CT and brain MRI reviewed, no acute findings -Carotid ultrasound with no significant stenosis -UA consistent with UTI, started on antibiotics as below -Lipid panel wnl, and hemoglobin A1c 5.7 -Continue statin -Neuro checks, NIHSS -Monitor on telemetry -Echocardiogram ordered -EEG ordered -Consult PT/OT/ST -Neurology consulted, appreciate recommendations, increased patient's aspirin to 325mg daily UTI: UA with +nitrites, large leuks, WBCs bacteria. -Continue on IV Rocephin -Await urine culture Dementia: Chronic, at baseline per the -Continue patient's home medications including memantine-donepezil Dyslipidemia: Chronic -continue patient's statin and fish oil -lipid panel wnl DVT Prophylaxis: Lovenox sq Discharge Planning 1010hrs: Discharge pending echocardiogram, EEG, and urine culture. Problem Qualifiers (1) UTI (urinary tract infection): Qualified Codes: N39.0 - Urinary tract infection, site not specified (2) TIA (transient ischemic attack): Qualified Codes: G45.9 - Transient cerebral ischemic attack, unspecified Delicia Rodriguez PA-C Mar 22, 2018 10:15 am
--- NOTE | 2018-03-22 13:39 | MG ---
cc: Teresa Cuadra MD EEG NUMBER: [id number] REFERRING PHYSICIAN: Dr. Morgan Gordon. IDENTIFICATION: In room H94. Awake, drowsy, asleep with photic done. Negative MRI. A 73-year-old woman with speech disturbance, mild memory disturbance, confusion, history of dementia. On aspirin, thiamine, Pravachol, ceftriaxone, synthroid, Lovenox. DESCRIPTION OF RECORD: The patient has adequate background of 8 Hz, 20 microvolts alpha rhythm. Photic stimulation did elicit a posterior driving response. Fairly symmetrical background overall. Some myogenic artifact, but a normal alpha rhythm. There is a question of a phase reversal noted, possibly at epoch 65 in both frontal regions, so I am questioning the validity. The rest of the background seems normal. IMPRESSION: Overall, normal appearing electroencephalogram with this one questionable phase reversal; however, not seen in any other epoch, likely artifactual, but clinical correlation with the patient's history and exam. Tersea Cuadra MD DF/ZACHERY , 12:57 PM , 01:38 PM
--- NOTE | 2018-03-22 15:26 | ECHRPT ---
Indication: CVA/TIA CONCLUSIONS Normal left ventricular size. Mild concentric left ventricular hypertrophy. The left ventricular systolic function is niuwsmny-et-dqkyaxm reduced with an estimated ejection fra ction in the range of 35-40%. There is diffuse global hypokinesis with distinct regional wall motion abnormalities. Anterior, apic al, and inferoapical moderate hypokinesis. Mitral annular calcification is present. Trace mitral valve regurgitation. Trace aortic valve regurgitation. There is trace tricuspid valve regurgitation. BP: / HR: Rhythm: MEASUREMENTS (Male / Female) Normal Values Technical Quality: 2D ECHO LV Diastolic Diameter PLAX 4.5 cm 4.2 - 5.9 / 3.9 - 5.3 cm LV Systolic Diameter PLAX 3.7 cm IVS Diastolic Thickness 1.4 cm 0.6 - 1.0 / 0.6 - 0.9 cm LVPW Diastolic Thickness 0.6 cm 0.6 - 1.0 / 0.6 - 0.9 cm LV Relative Wall Thickness 0.4 RV Internal Dim ED PLAX 2.1 cm M-MODE AV Cusp Separation MM 1.9 cm DOPPLER AV Peak Velocity 144.0 cm/s AV Peak Gradient 8.3 mmHg LVOT Peak Velocity 95.0 cm/s LVOT Peak Gradient 3.6 mmHg Mitral E Point Velocity 54.3 cm/s Mitral A Point Velocity 109.0 cm/s Mitral E to A Ratio 0.5 TR Peak Velocity 226.3 cm/s TR Peak Gradient 20.5 mmHg Right Atrial Pressure 10.0 mmHg Pulmonary Artery Systolic Pressu 30.5 mmHg Right Ventricular Systolic Press 30.5 mmHg FINDINGS LEFT VENTRICLE Normal left ventricular size. Mild concentric left ventricular hypertrophy. The left ventricular systolic function is xelpuats-[id number] reduced with an estimated ejection fra ction in the range of 35-40%. There is diffuse global hypokinesis with distinct regional wall motion abnormalities. RIGHT VENTRICLE Normal right ventricular size and systolic function. LEFT ATRIUM The left atrial size is normal. RIGHT ATRIUM The right atrial size is normal. ATRIAL SEPTUM Normal atrial septal thickness without atrial level shunting by limited color doppler interrogation. AORTA The aortic root and proximal ascending aorta are normal in size on limited imaging. MITRAL VALVE Mitral annular calcification is present. Trace mitral valve regurgitation. AORTIC VALVE Trace aortic valve regurgitation. TRICUSPID VALVE There is trace tricuspid valve regurgitation. PULMONARY VALVE No pulmonary valve regurgitation or stenosis. VESSELS The inferior vena cava is normal in size. PERICARDIUM No pericardial effusion. Yemi Minor MD, FACC (Electronically Signed) Final Date:22 March 2018 15:25 Amended: 22 March 2018 15:38
--- NOTE | 2018-03-22 18:27 | HHI.PR ---
Review/Management Diagnosis dementia Possible TIA vs encephalopathy from uti Plan increase asa to 325 mg daily ok from neurologic standpoint to discharge when ok with primary service. Please schedule follow up with me in office in 3 weeks Diagnosis/Plan: Subjective Subjective Comments No acute events reported Active Medications Current Medications Medications (Trade) Dose Ordered Sig/Clara Route Start Time Stop Time Status Last Admin (NS Flush) 2 ml BID IV FLUSH 03/21/18 09:00 03/22/18 09:34 (NS Flush) 2 ml UNSCH PRN IV FLUSH 03/21/18 07:45 (Vasotec Inj) 1.25 mg Q4H PRN IV PUSH 03/21/18 07:45 (NovoLOG SUPPLEMENTAL SCALE) 1 ACHS SQ 03/21/18 08:00 (D50w (Vial) Inj) 50 ml UNSCH PRN IV PUSH 03/21/18 07:45 (Glucagon Inj) 1 mg UNSCH PRN OTHER 03/21/18 07:45 (Lovenox Inj) 40 mg Q24H SQ 03/21/18 08:00 03/22/18 09:33 (Vitamin D3) 5,000 units DAILY PO 03/22/18 09:00 03/22/18 09:33 (Lexapro) 10 mg DAILY PO 03/22/18 09:00 03/22/18 09:33 (Synthroid) 75 mcg DAILY@0600 PO 03/22/18 06:00 03/22/18 05:33 (Singulair) 10 mg HS PO 03/21/18 21:00 03/21/18 20:19 (Vitamin B1) 100 mg DAILY PO 03/22/18 09:00 03/22/18 09:33 Patient Own Medication PT OWN MED: (Memantine-Donepezil (Namzar... HS PO 03/21/18 21:00 Future hold (Pravachol) 40 mg DAILY PO 03/22/18 09:00 03/22/18 09:33 Ceftriaxone Sodium 1000 mg/ Sodium Chloride 100 ml @ 200 mls/hr Q24H IV 03/22/18 09:00 03/22/18 09:34 (Aspirin Chew) 324 mg DAILY CHEW 03/22/18 09:00 03/22/18 09:34 Allergies Allergies Coded Allergies No Known Allergies (Verified Adverse Reaction, Unknown, 03/21/18) Exam I&O / VS Vital Signs Date Time Temp Pulse Resp B/P (MAP) Pulse Ox O2 Delivery O2 Flow Rate FiO2 03/22/18 16:33 98.2 70 18 138/60 (86) 96 03/22/18 15:00 68 03/22/18 12:34 98.2 68 18 146/82 (103) 96 03/22/18 09:49 66 162/80 (107) 03/22/18 08:06 98.2 88 20 140/82 (101) 88 03/22/18 07:35 61 03/22/18 04:00 52 03/22/18 03:40 97.7 60 16 159/74 (102) 94 03/22/18 00:00 55 03/21/18 23:40 97.9 60 16 140/74 (96) 95 03/21/18 21:05 97.8 69 16 156/80 (105) 95 03/21/18 20:00 107 Exam Comments exam without change Objective Radiology Results MRI brain--no acute cva Micro and Labs Laboratory Tests Test 03/22/18 07:05 Triglycerides Level 137 Cholesterol Level 172 LDL Cholesterol 62 HDL Cholesterol 82.3 Cholesterol/HDL Ratio 2.08 Date/Time Source Procedure Growth Status 03/21/18 07:45 Blood Peripheral Aerobic Blood Culture - Preliminary NO GROWTH IN 1 DAY Resulted 03/21/18 07:45 Blood Peripheral Anaerobic Blood Culture - Preliminary NO GROWTH IN 1 DAY Resulted 03/21/18 06:20 Urine Catheterized Urine Urine Culture - Preliminary Gram Negative Cody Resulted Diagnostic Tests echo--EF 35-40% EEG---no epileptiform discharges Morgan Gordon MD PhD Mar 22, 2018 18:27
[2018-03-22] MEDS: MONTELUKAST SODIUM 10 MG TAB PO SCH (20:21)
[2018-03-23 03:36] VITALS: BP 158/77; PULSE 74; RESP 16; TEMP 97.8; O2SAT 97
[2018-03-23] MEDS: LEVOTHYROXINE SODIUM 75 MCG TAB PO SCH (05:20)
[2018-03-23] MEDS: INSULIN ASPART SUPPLEMENTAL SCALE SQ SCH (08:00)
[2018-03-23 08:37] VITALS: BP 131/72; PULSE 71; RESP 18; TEMP 97.6; O2SAT 95
[2018-03-23] MEDS: cefTRIAXone INJ 1,000 MG in SODIUM CHLORIDE 0.9% INJ 100 ML IV SCH (08:48)
[2018-03-23] MEDS: ENOXAPARIN SODIUM 40 MG/0.4 ML SYRINGE SQ SCH (08:49)
[2018-03-23] MEDS: ESCITALOPRAM OXALATE 10 MG TAB PO SCH (08:49)
[2018-03-23] MEDS: PRAVASTATIN SOD 40 MG TAB PO SCH (08:49)
[2018-03-23] MEDS: THIAMINE HCL 100 MG TAB PO SCH (08:49)
[2018-03-23] MEDS: CHOLECALCIFEROL (VIT D3) 5000 UNIT CAP PO SCH (08:49)
[2018-03-23] MEDS: ASPIRIN 81 MG CHEW TAB CHEW SCH (08:50)
[2018-03-23] MEDS: SODIUM CHLORIDE 0.9% FLUSH 10 ML FLUSH IV FLUSH SCH (08:50)
--- NOTE | 2018-03-23 10:24 | HHI.PR ---
Subjective Remarks Follow up for TIA, UTI. The patient is seen with her at bedside. She has no medical complaints today and wants to go home. Denies any chest pain, palpitations, or shortness of breath. Denies any headache, lightheadedness, or dizziness. Agrees to nuclear stress test. Objective Vitals Vital Signs Date Time Temp Pulse Resp B/P (MAP) Pulse Ox O2 Delivery O2 Flow Rate FiO2 03/23/18 08:37 97.6 71 18 131/72 (91) 95 03/23/18 03:36 97.8 74 16 158/77 (104) 97 03/22/18 23:20 97.9 76 18 161/77 (105) 97 03/22/18 23:10 83 03/22/18 19:34 98.7 81 18 136/80 (98) 94 03/22/18 16:33 98.2 70 18 138/60 (86) 96 03/22/18 15:00 68 03/22/18 12:34 98.2 68 18 146/82 (103) 96 I/O 03/22/18 03/22/18 03/22/18 03/23/18 03/23/18 03/23/18 07:00 15:00 23:00 07:00 15:00 23:00 Intake Total 480 ml Balance 480 ml Intake Oral 480 ml # Voids 3 Result Diagram: 03/21/1861903/21/18619 Imaging Last Impressions Head CT 03/21/18609 Signed Impressions: CONCLUSION: Unremarkable study. Chest X-Ray 03/21/18609 Signed Impressions: CONCLUSION: No acute cardiopulmonary disease. Carotid Artery Ultrasound 03/21/18 0000 Signed Impressions: CONCLUSION: 1. Right Internal Carotid Artery: No significant stenosis 2. Left Internal Carotid Artery: No significant stenosis Brain MRI 03/21/18 0000 Signed Impressions: CONCLUSION: 1. Negative MR Brain non contrast. Objective Remarks GENERAL: Well-nourished, well-developed pleasantly confused elderly female patient in [facility]. SKIN: Warm and dry. No rash. HEENT: Normocephalic. Atraumatic. Pupils equal and round. Mucous membranes pink and moist. CARDIOVASCULAR: Regular rate and rhythm. No murmur appreciated. RESPIRATORY: No accessory muscle use. Clear to auscultation. Breath sounds equal bilaterally. GASTROINTESTINAL: Abdomen soft, non-tender, nondistended. Normoactive bowel sounds x4. MUSCULOSKELETAL: No obvious deformities. Trace bilateral lower extremity edema. NEUROLOGICAL: Awake and alert. No obvious cranial nerve deficits. Motor grossly within normal limits. Normal speech. PSYCHIATRIC: Appropriate mood and affect; insight and judgment limited. Medications and IVs Current Medications Medications (Trade) Dose Ordered Sig/Clara Route Start Time Stop Time Status Last Admin (NS Flush) 2 ml BID IV FLUSH 03/21/18 09:00 03/23/18 08:50 (NS Flush) 2 ml UNSCH PRN IV FLUSH 03/21/18 07:45 (Vasotec Inj) 1.25 mg Q4H PRN IV PUSH 03/21/18 07:45 (NovoLOG SUPPLEMENTAL SCALE) 1 ACHS SQ 03/21/18 08:00 (D50w (Vial) Inj) 50 ml UNSCH PRN IV PUSH 03/21/18 07:45 (Glucagon Inj) 1 mg UNSCH PRN OTHER 03/21/18 07:45 (Lovenox Inj) 40 mg Q24H SQ 03/21/18 08:00 03/23/18 08:49 (Vitamin D3) 5,000 units DAILY PO 03/22/18 09:00 03/23/18 08:49 (Lexapro) 10 mg DAILY PO 03/22/18 09:00 03/23/18 08:49 (Synthroid) 75 mcg DAILY@0600 PO 03/22/18 06:00 03/23/18 05:20 (Singulair) 10 mg HS PO 03/21/18 21:00 03/22/18 20:21 (Vitamin B1) 100 mg DAILY PO 03/22/18 09:00 03/23/18 08:49 Patient Own Medication PT OWN MED: (Memantine-Donepezil (Namzar... HS PO 03/21/18 21:00 Future hold 03/22/18 20:21 (Pravachol) 40 mg DAILY PO 03/22/18 09:00 03/23/18 08:49 Ceftriaxone Sodium 1000 mg/ Sodium Chloride 100 ml @ 200 mls/hr Q24H IV 03/22/18 09:00 03/23/18 08:48 (Aspirin Chew) 324 mg DAILY CHEW 03/22/18 09:00 03/23/18 08:50 A/P Problem List: (1) UTI (urinary tract infection) ICD Code: N39.0 - Urinary tract infection, site not specified Status: Acute (2) TIA (transient ischemic attack) ICD Code: G45.9 - Transient cerebral ischemic attack, unspecified Status: Acute Assessment and Plan 73-year-old female with history of dementia, hypothyroidism, dyslipidemia, presents with acute onset of confusion and speech difficulty. TIA: Symptoms consistent with transient ischemic attack, symptoms resolved after approximately 30 minutes. Rule out other etiologies, CVA, seizure, infection, arrhythmia. -Head CT and brain MRI reviewed, no acute findings -Carotid ultrasound with no significant stenosis -UA consistent with UTI, started on antibiotics as below -Lipid panel wnl, and hemoglobin A1c 5.7 -Continue statin -Neuro checks, NIHSS -Monitor on telemetry -Echocardiogram showed moderate to severely reduced systolic function with EF 35-40% -EEG unremarkable -Consult PT/OT/ST -Neurology consulted, appreciate recommendations, increased patient's aspirin to 325mg daily, cleared for discharge from neurological standpoint Cardiomyopathy: Echo with EF 35-40%. No prior history of CAD or CHF, however with significant family history of heart disease. -Check nuclear stress test -Start on low dose lisinopril 5mg qd and metoprolol 12.5mg bid -Continue aspirin and statin -Follow up with cardiology, patient has seen [facility] many years ago per the UTI: UA with +nitrites, large leuks, WBCs bacteria. -Continue on IV Rocephin -Await final urine culture Dementia: Chronic, at baseline per the -Continue patient's home medications including memantine-donepezil Dyslipidemia: Chronic -continue patient's statin and fish oil -lipid panel wnl DVT Prophylaxis: Lovenox sq Discharge Planning 1020hrs: Discharge pending results of Nuclear Stress Test. Problem Qualifiers (1) UTI (urinary tract infection): Qualified Codes: N39.0 - Urinary tract infection, site not specified (2) TIA (transient ischemic attack): Qualified Codes: G45.9 - Transient cerebral ischemic attack, unspecified Delicia Rodriguez PA-C Mar 23, 2018 10:24 am
[2018-03-23] MEDS ORDERED: REGADENOSON INJ 0.4 MG/5 ML SYR ONE (10:36)
[2018-03-23] MEDS ORDERED: LISINOPRIL 5 MG TAB PO SCH (11:00)
[2018-03-23 11:44] VITALS: BP 153/70; PULSE 65; RESP 18; TEMP 97.8; O2SAT 95
--- NOTE | 2018-03-23 11:54 | RADRPT ---
EXAM DATE: 03/23/2018 11:46 AM EDT AGE/SEX: 73 years / Female INDICATIONS:Congestive heart failure. . Substernal chest pain. CLINICAL DATA: This is the patient's initial encounter. Patient reports that signs and symptoms have been present for 1 day and indicates a pain score of 0/10. MEDICAL/SURGICAL HISTORY: Hypertension. Tubal ligation. COMPARISON: No prior [facility] exams available for comparison. DOSE: 8.5 mCi Tc 99m Myoview at rest 25.4 mCi [id number] at stress 0.4 mg Lexiscan STRESS SYMPTOMS: Asymptomatic EJECTION FRACTION: >70 % TECHNIQUE: The patient underwent pharmacologic stress with infusion of prescribed dose. Continuous ECG tracing was monitored during stress. Gated SPECT imaging was performed after stress and conventi onal SPECT imaging was performed at rest. The examination was performed on a SPECT/CT scanner, both attenuation and non-corrected datasets were reviewed. FINDINGS: Distribution: The maximum perfused segment at stress is in the lateral wall. Perfusion Study: The pattern of perfusion at stress is within normal limits. Gated Study: There are intact wall motion and wall thickening without hypokinetic or dyskinetic segm ents. The ejection fraction is calculated at >70%. RISK CATEGORY: Low risk CONCLUSION: 1. Negative examination. Electronically signed by: Apple Lara MD 03/23/2018 11:52 AM EDT
[2018-03-23] MEDS ORDERED: CIPR250T2 PO (12:54)
[2018-03-23] MEDS ORDERED: ASPI-146 PO (12:54)
[2018-03-23] MEDS ORDERED: METO25TA3 PO (12:54)
[2018-03-23] MEDS ORDERED: LISI-519 PO (12:54)
--- NOTE | 2018-03-23 12:55 | HHI.DCPOC ---
Discharge Care Plan Diagnosis: (1) TIA (transient ischemic attack) (2) UTI (urinary tract infection) (3) Cardiomyopathy Goals to Promote Your Health * To prevent worsening of your condition and complications * To maintain your health at the optimal level Directions to Meet Your Goals Take your medications as prescribed Follow your dietary instruction Follow activity as directed Keep your appointments as scheduled Take your immunizations and boosters as scheduled If your symptoms worsen call your PCP, if no PCP go to Urgent Care Center or Emergency Room Smoking is Dangerous to Your Health. Avoid second hand smoke Call the 24-hour hour crisis hotline for domestic abuse at Delicia Rodriguez PA-C Mar 23, 2018 12:55
--- NOTE | 2018-03-23 15:36 | HHI.DS ---
Discharge Summary Admission Date March 21, 2018 at 7:33 am Discharge Date: Mar 23, 2018 Admitting Diagnosis TIA; uti (1) TIA (transient ischemic attack) ICD Code: G45.9 - Transient cerebral ischemic attack, unspecified Diagnosis: Principal Status: Acute (2) UTI (urinary tract infection) ICD Code: N39.0 - Urinary tract infection, site not specified Diagnosis: Secondary Status: Acute (3) Cardiomyopathy ICD Code: I42.9 - Cardiomyopathy, unspecified Diagnosis: Secondary Procedures None. Brief History - From Admission The patient is a 73-year-old female who was brought to the emergency department by her for evaluation of confusion and difficulty with speech. Patient has history of dementia and does not recall any of the events that led to her coming to the hospital. She states that she feels "fine". She has no pain at this time. Denies headache, vision changes, chest pain, dyspnea. Her is not present at bedside at this time. Further information is gathered from review of the electronic medical record and discussion with the ER physician. The patient's checked on his at approximately 3:00 this morning. And he awakened her she had difficulty speaking and was more confused than normal. Her symptoms resolved approximately 30 minutes later. She currently has no symptoms. She remains confused, which is apparently her baseline. CBC/BMP: 03/21/18 0620 03/21/18 0620 Significant Findings Laboratory Tests Test 03/21/18 06:20 03/22/18 07:05 Hemoglobin 16.1 GM/DL (11.6-15.3) Hematocrit 46.6 % (35.0-46.0) Neutrophils (%) (Auto) 71.4 % (16.0-70.0) Lymphocytes # (Auto) 0.9 TH/MM3 (1.0-4.8) Urine Turbidity HAZY (CLEAR) Urine Nitrite POS (NEG) Urine Leukocyte Esterase LARGE (NEG) Urine WBC 19 /hpf (0-5) Urine Bacteria MANY /hpf (NONE) Urine Mucus FEW /lpf (OCC) Random Glucose 110 MG/DL (74-106) Estimat Glomerular Filtration Rate 57 ML/MIN (>89) Troponin I LESS THAN 0.02 NG/ML HDL Cholesterol 82.3 MG/DL (40.0-60.0) Imaging Last Impressions Myocardial Perfusion Scan Nuc Med 03/23/18599 Signed Impressions: CONCLUSION: 1. Negative examination. Head CT 03/21/18609 Signed Impressions: CONCLUSION: Unremarkable study. Chest X-Ray 03/21/18609 Signed Impressions: CONCLUSION: No acute cardiopulmonary disease. Carotid Artery Ultrasound 03/21/18 Signed Impressions: CONCLUSION: 1. Right Internal Carotid Artery: No significant stenosis 2. Left Internal Carotid Artery: No significant stenosis Brain MRI 03/21/18 Signed Impressions: CONCLUSION: 1. Negative MR Brain non contrast. PE at Discharge GENERAL: Well-nourished, well-developed pleasantly confused elderly female patient in [facility]. SKIN: Warm and dry. No rash. HEENT: Normocephalic. Atraumatic. Pupils equal and round. Mucous membranes pink and moist. CARDIOVASCULAR: Regular rate and rhythm. No murmur appreciated. RESPIRATORY: No accessory muscle use. Clear to auscultation. Breath sounds equal bilaterally. GASTROINTESTINAL: Abdomen soft, non-tender, nondistended. Normoactive bowel sounds x4. MUSCULOSKELETAL: No obvious deformities. Trace bilateral lower extremity edema. NEUROLOGICAL: Awake and alert. No obvious cranial nerve deficits. Motor grossly within normal limits. Normal speech. PSYCHIATRIC: Appropriate mood and affect; insight and judgment limited. Hospital Course 73-year-old female with history of dementia, hypothyroidism, dyslipidemia, presents with acute onset of confusion and speech difficulty. TIA: Symptoms consistent with transient ischemic attack, symptoms resolved after approximately 30 minutes. Rule out other etiologies, CVA, seizure, infection, arrhythmia. Head CT and brain MRI reviewed, no acute findings. Carotid ultrasound with no significant stenosis. UA consistent with UTI, started on antibiotics as below. Lipid panel wnl, and hemoglobin A1c 5.7. Continue statin. Neuro checks, NIHSS, Monitor on telemetry. Patient back to baseline dementia. Echocardiogram showed moderate to severely reduced systolic function with EF 35-40%, see below. EEG unremarkable. Consulted PT/OT/ST, no therapy needed at discharge. Neurology consulted, increased patient's aspirin to 325mg daily, cleared for discharge from neurological standpoint. Nonischemic Cardiomyopathy: Found during TIA work up with Echo showing EF 35-40% . No prior history of CAD or CHF, however with significant family history of heart disease. Checked Nuclear Stress Test which was unremarkable, likely nonischemic cardiomyopathy. Started on low dose lisinopril 5mg qd and metoprolol 12.5mg bid. Continued aspirin and statin. Follow up with cardiology, patient has seen [facility] many years ago per the , will refer to [facility] at discharge. UTI: UA with +nitrites, large leuks, WBCs bacteria. Given IV Rocephin. Urine culture with pansensitive E.coli. Discharged on cipro 250mg po bid x3days. Dementia: Chronic, at baseline per the . Continued patient's home medications including memantine-donepezil Dyslipidemia: Chronic. Continued patient's statin and fish oil. Lipid panel wnl. Pt Condition on Discharge: Stable Discharge Disposition: Discharge Home Discharge Time: <= 30 minutes Discharge Instructions DIET: Follow Instructions for: Heart Healthy Diet Activities you can perform: Regular-No Restrictions Follow up Referrals: Cardiology - 1 Week @ [facility] Neurology - 1 Week with Morgan Gordon MD PhD PCP Follow-up - 2-3 Days New Medications: Aspirin DR (Ecotrin Regular Strength) 325 Mg Tabdr 325 MG PO DAILY, #30 TAB 1 Refill Ciprofloxacin (Ciprofloxacin) 250 Mg Tab 250 MG PO BID for Infection for 3 Days, #6 TAB 0 Refills Lisinopril (Lisinopril) 5 Mg Tab 5 MG PO DAILY for heart for 30 Days, #30 TAB 1 Refill Metoprolol Tartrate (Metoprolol Tartrate) 25 Mg Tab 12.5 MG PO Q12HR for heart, #30 TAB 1 Refill Continued Medications: Cholecalciferol (Vitamin D3) 5,000 Unit Cap 5000 UNITS PO DAILY for Nutritional Supplement, CAP 0 Refills Escitalopram (Escitalopram) 10 Mg Tab 10 MG PO DAILY, TAB 0 Refills Fish Oil-Cholecalciferol (Fish Oil + D3) 1,200-1,000 Mg-Unit Cap 1 CAP PO DAILY for Nutritional Supplement, CAP 0 Refills Levothyroxine (Levothyroxine) 75 Mcg Tab 75 MCG PO DAILY for Thyroid, TAB 0 Refills Memantine-Donepezil (Namzaric) 28-10 Mg Cap 1 CAP PO HS for Alzheimer Dementia, CAP 0 Refills Montelukast (Montelukast) 10 Mg Tab 10 MG PO HS, TAB 0 Refills Simvastatin (Simvastatin) 20 Mg Tab 20 MG PO DAILY for Cholesterol Management, TAB 0 Refills Thiamine (Vitamin B-1) 100 Mg Tab 100 MG PO DAILY for Nutritional Supplement, TAB 0 Refills Discontinued Medications: Aspirin (Aspirin) 81 Mg Chew 81 MG CHEW DAILY, TAB 0 Refills Delicia Rodriguez PA-C Mar 23, 2018 3:36 pm
[2018-03-23] MEDS ORDERED: METOPROLOL TARTRATE 25 MG TAB PO SCH (21:00)
== END 2018-03-23 17:05 | disposition home or self-care (01) ==
LOC: NEPC 04:30 → NEDA 07:33 → NEPHCDU 11:23
PROVIDERS: ADMIT Family Medicine; ATTEND Family Medicine
DX: G45.9 Transient cerebral ischemic attack, unspecified (principal); N39.0 Urinary tract infection, site not specified; I42.9 Cardiomyopathy, unspecified; I10 Essential (primary) hypertension; E03.9 Hypothyroidism, unspecified; E78.5 Hyperlipidemia, unspecified; G30.9 Alzheimer's disease, unspecified; F02.80 Dementia in other diseases classified elsewhere, unspecified severity, without behavioral disturbance, psychotic disturbance, mood disturbance, and anxiety; Z79.82 Long term (current) use of aspirin; Z87.891 Personal history of nicotine dependence
CPT/HCPCS: 70450; 70551; 71045; 78452; 80053; 80061; 81001; 82550; 82948; 83036; 84484; 85025; 85610; 85730; 87040; 87077; 87086; 87186; 92610; 93005; 93017; 93306; 93880; 95819; 96365; 96366; 96372; 97166; 99285; A9502; G0378; G8987; G8988; G8989; G8996; G8997; G8998; J0696; J1650; J2785